=== PATIENT | male | born 1965 | race Caucasian/White ===

== ENCOUNTER 2018-10-07 18:17 | Emergency (ER) | payer SELFPAY ==
[~2018-10-07] VITALS: Ht 162.6 cm; Wt 87.0 kg
[2018-10-07 18:28] VITALS: BP 153/93; PULSE 105; RESP 18; Ht 162.6 cm; Wt 87.0 kg
--- NOTE | 2018-10-07 18:42 | ERD ---
ER Documentation Chief Complaint Chief Complaint ETOH needs referrals pt AOX4 ambulated in steady gait HPI This is a 53-year-old male with history of alcohol abuse is here requesting information on where he can go for detoxification. He states his last drink was today. He denies any abdominal pain. He has no chest pain shortness of breath or palpitations. He has no nausea vomiting or diarrhea. Denies any injury or trauma. No head trauma. ROS All systems reviewed and are negative except as per history of present illness. Medications Home Meds No Active Prescriptions or Reported Meds Allergies Allergies: Coded Allergies: No Known Allergy (Unverified , 11/28/12) PMhx/Soc Hx Alcohol Use: Yes (SOCIAL) Hx Tobacco Use: No FmHx Family History: No diabetes Physical Exam Vitals Vital Signs Date Temp Pulse Resp B/P (MAP) Pulse Ox O2 O2 Flow FiO2 Time Delivery Rate 10/07/18 97.8 105 18 153/93 96 18:28 (113) Physical Exam INITIAL VITAL SIGNS: Reviewed by me GENERAL: Awake, alert and oriented x 4, well appearing, nontoxic, speaking in full sentences. No acute distress HEAD: Atraumatic NECK: Supple. No masses. Full range of motion. No meningismus. No midline tenderness. RESPIRATORY: Clear to auscultation bilaterally. Symmetric chest wall rise. No wheezing or rales. No accessory muscle use. CV: Regular rate and rhythm. No murmurs, rubs, or gallops. ABDOMEN: Soft, non-distended. Nontender. Negative [place]. Negative McBurneys point tenderness. No CVA tenderness bilaterally. No guarding. No rebound. NEUROLOGIC: Normal mental status and speech. Face is symmetric. Moves all e xtremities equally. Motor and sensory distally intact. Normal coordination. Ambulates with a strong steady gait. Procedures/MDM Patient is here requesting information on alcohol detoxification. He was given out information and handouts of [employer]. He is alert and oriented. He walks with a strong steady gait and speaks in full sentences. No history of injury or trauma. Patient counseled regarding my diagnostic impression and care plan. Prior to discharge all questions answered. Pt agrees with treatment plan and understands strict return precautions. Pt is instructed to follow up with primary care provider within 24-48 hours. Precautionary instructions provided including instructions to return to the ER if not improving or for any worsening or changing symptoms or concerns. Departure Diagnosis: Primary Impression: Alcohol abuse Condition: Stable Patient Instructions: Alcohol Abuse Additional Instructions: Llame al doctor MAANA y scout zack SHERRY PARA DENTRO DE 1-2 [place].Dgale a la sec retaria que nosotros le instruimos hacer esta sherry.Avise o llame si suero condicin se empeora antes de la sherry. Regresa aqui si peor o no mejor. PARAG BRAY PA-C Oct 07, 2018 18:42
== END 2018-10-07 18:42 | disposition home or self-care (01) ==
LOC: E/R 18:17
DX: F10.10 Alcohol abuse, uncomplicated (principal)
CPT/HCPCS: 99282